=== PATIENT | female | born 1995 | race Caucasian/White ===

== ENCOUNTER 2018-12-04 05:19 | Emergency (ER) | payer BC ==
--- NOTE | 2018-12-04 06:40 | EDPHY ---
H & P Stated Complaint: epigastric pain and vomiting Time Seen by Provider: 12/04/18 06:39 - Personal History LMP (Females 10-55): 8-14 Days Ago Current Tetanus/Diphtheria Vaccine: No Current Tetanus Diphtheria and Acellular Pertussis (TDAP): No - Medical/Surgical History Hx Asthma: No Hx Chronic Respiratory Disease: No Hx Diabetes: No Hx Cardiac Disease: No Hx Renal Disease: No Hx Cirrhosis: No Hx Alcoholism: No Hx HIV/AIDS: No Hx Splenectomy or Spleen Trauma: No Other PMH: addnoids, IBS - Social History Smoking Status: Current some day smoker Constitutional: Initial Vital Signs Temperature (C) 37.1 C 12/04/18 05:21 Heart Rate 98 12/04/18 05:21 Respiratory Rate 16 12/04/18 05:21 Blood Pressure 104/67 12/04/18 05:21 O2 Sat (%) 99 12/04/18 05:21 O2 Delivery Mode Room Air Allergies/Adverse Reactions: cinnamon Allergy (Verified 12/04/18 05:24) gluten Allergy (Verified 12/04/18 05:24) milk Allergy (Verified 12/04/18 05:24) shrimp Allergy (Verified 12/04/18 05:24) soy Allergy (Verified 12/04/18 05:24) tree nut [Nuts] Allergy (Verified 12/04/18 05:24) Home Medications: Medication Instructions Recorded [facility] 05/09/16 Ondansetron Odt [Zofran Odt 4 mg 4 mg PO Q4 PRN #10 tab 12/04/18 (RX)] Medical Decision Making ED Course/Re-evaluation: CHIEF COMPLAINT: Nausea vomiting diarrhea HISTORY OF PRESENT ILLNESS: 23-year-old female who at 2:00 a.m. Was awoke at with severe nausea. She started to vomit multiple times after that. She did not start to have diarrhea until she arrived here at the hospital. She has some epigastric pain but it is not severe. She thinks it is from vomiting. She is otherwise very healthy. She does not think she has fever. REVIEW OF SYSTEMS: A comprehensive 10 system review of systems is otherwise negative aside from elements mentioned in the history of present illness and medical decision making. PHYSICAL EXAM: HR, BP, O2 Sat, RR. Temp noted General Appearance: Alert, well hydrated, appropriate, and non-toxic appearing. Head: Atraumatic without scalp tenderness or obvious injury Eyes: Pupils equal, round, reactive to light and accommodation, EOMI, no trauma , no injection. Ears: Clear bilaterally, no perforation, normal landmarks Nose: Atraumatic, no rhinorrhea, clear. Throat: There is no erythema or exudates, no lesions, normal tonsils, mucus membranes moist. Neck: Supple, nontender, no lymphadenopathy. Respiratory: No retractions, no distress, no wheezes, and no accessory muscle use. Lungs are clear to auscultation bilaterally. Cardiovascular: Regular rate and rhythm, no murmurs, rubs, or gallops. Good capillary refill all extremities. Gastrointestinal: Abdomen is soft, mild tenderness in the epigastrium, non- distended, no masses, no rebound, no guarding, no peritoneal signs. Musculoskeletal: Normal active ROM of all extremities, atraumatic. Neurological: Alert, appropriate, and interactive. The patient has non-focal cranial nerves, motor, sensory, and cerebellar exam. Skin: No rashes, good turgor, no nodules on palpation. Past medical history: Patient denies Past surgical history: None Family history: Noncontributory Social history: Single, student, does not abuse tobacco drugs or alcohol. She is a recovering opiate abuser DIAGNOSTICS/PROCEDURES/CRITICAL CARE TIME: Not indicated DIFFERENTIAL DIAGNOSIS: The differential diagnosis for the patient's nausea and vomiting included but was not limited to gastroenteritis, gastritis, appendicitis, and medication side effect. MEDICAL DECISION MAKING: This 23-year-old female is in good health. She developed severe nausea and vomiting followed by diarrhea when she arrived in the emergency department this morning. It all began at 2:00 a.m.. She has a benign abdomen. This is a gastroenteritis. I am rehydrating the patient with a couple L of normal saline. I am giving her Zofran. Labs unremarkable. On serial reassessments patient has continued to feel better. She is tolerating PO fluids here and feels ready for discharge home. Script for Zofran and standard care and followup instructions provided. Return precautions discussed. She is comfortable with this plan. P. O. Trial well. No more symptoms. Sending home with Zofran. - Data Points Laboratory Results: 12/04/18 07:02 POC Hgb 15.3 gm/dL gm/dL (12.6-16.3) POC Hct 45 % % (38-47) POC Sodium 144 mEq/L mEq/L (135-145) POC Potassium 3.5 mEq/L mEq/L (3.3-5.0) POC Chloride 101 mEq/L mEq/L (97-110) POC Total CO2 27 mEq/L mEq/L (22-31) POC BUN 12 mg/dL mg/dL (7-23) POC Creatinine 0.7 mg/dL mg/dL (0.6-1.0) POC Glucose 122 mg/dL H mg/dL (70-100) Medications Given: Discontinued Medications Famotidine (Pepcid) 40 mg IVP EDNOW ONE Stop: 12/04/18 08:32 Last Admin: 12/04/18 08:56 Dose: 40 mg Hydromorphone HCl (Dilaudid) 0.5 mg IVP EDNOW ONE Stop: 12/04/18 06:45 Last Admin: 12/04/18 06:59 Dose: Not Given Sodium Chloride (Ns) 1,000 mls @ 0 mls/hr IV EDNOW ONE; Wide Open PRN Reason: Protocol Stop: 12/04/18 06:45 Last Admin: 12/04/18 06:55 Dose: 1,000 mls Sodium Chloride (Ns) 1,000 mls @ 0 mls/hr IV EDNOW ONE; Wide Open PRN Reason: Protocol Stop: 12/04/18 06:45 Last Admin: 12/04/18 06:57 Dose: 1,000 mls Sodium Chloride (Ns) 1,000 mls @ 0 mls/hr IV ONCE ONE; Wide Open PRN Reason: Protocol Stop: 12/04/18 08:47 Last Admin: 12/04/18 08:55 Dose: 1,000 mls Ketorolac Tromethamine (Toradol) 30 mg IVP EDNOW ONE Stop: 12/04/18 06:45 Last Admin: 12/04/18 06:59 Dose: 30 mg Ondansetron HCl (Zofran) 4 mg IVP EDNOW ONE Stop: 12/04/18 06:45 Last Admin: 12/04/18 06:57 Dose: 4 mg Ondansetron HCl (Zofran) 4 mg IVP EDNOW ONE Stop: 12/04/18 08:32 Last Admin: 12/04/18 08:55 Dose: 4 mg Point of Care Test Results: Chemistry 12/04/18 07:02 POC Sodium 144 mEq/L mEq/L (135-145) POC Potassium 3.5 mEq/L mEq/L (3.3-5.0) POC Chloride 101 mEq/L mEq/L (97-110) POC Total CO2 27 mEq/L mEq/L (22-31) POC BUN 12 mg/dL mg/dL (7-23) POC Creatinine 0.7 mg/dL mg/dL (0.6-1.0) POC Glucose 122 mg/dL H mg/dL (70-100) ISTAT H&H 12/04/18 07:02 POC Hgb 15.3 gm/dL gm/dL (12.6-16.3) POC Hct 45 % % (38-47) Departure - Departure Disposition: Home, Routine, Self-Care Clinical Impression: Gastroenteritis Condition: Good Instructions: Gastroenteritis (ED) Additional Instructions: 1. Use Zofran as prescribed if needed for nausea and vomiting. 2. Increase fluid intake as tolerated. 3. Follow up with your primary care provider as needed for unimproved symptoms over the next 2-3 days. 4. Return to the ED for any worsening of condition. Referrals: Darryl Vail MD [Medical Doctor] - As per Instructions Prescriptions: Ondansetron Odt [Zofran Odt 4 mg (RX)] 4 mg PO Q4 PRN #10 tab PRN Reason: Nausea/Vomiting, Use 1st
[2018-12-04] MEDS ORDERED: ONDANSETRON 4 MG/2 ML VIAL IVP ONE ×2 (06:44→08:31)
[2018-12-04] MEDS ORDERED: NS 1,000 ML IV ONE ×3 (06:44→08:46)
[2018-12-04] MEDS ORDERED: KETOROLAC 30 MG/1 ML SDV IVP ONE (06:44)
[2018-12-04] MEDS ORDERED: HYDROmorphONE/DILAUDID 2 MG/ML INJ IVP ONE (06:44)
[2018-12-04] MEDS ORDERED: FAMOTIDINE 20 MG/2 ML SDV IVP ONE (08:31)
[2018-12-04] MEDS ORDERED: ONDANSETRON DISINTEGRATING 4 MG TAB PO ONE (10:18)
[2018-12-04 10:33] VITALS: BP 104/50
== END 2018-12-04 10:29 | disposition home or self-care (01) ==
DX: K52.9 Noninfective gastroenteritis and colitis, unspecified (principal); E86.9 Volume depletion, unspecified
CPT/HCPCS: 82435-PO; 82565-PO; 82947-PO; 84132-PO; 84295-PO; 84520-PO; 85014-ER; 96374; J1170; J1885; J2405